=== PATIENT | male | born 1970 | race Two or more races ===

== ENCOUNTER 2016-11-24 12:08 | Inpatient (IN) | payer MEDICAID ==
[~2016-11-24] VITALS: Ht 172.7 cm; Wt 249.5 kg
[~2016-11-24 12:08] MED LIST: ALBU0.084 IN; ASPI81CH43; BUDE160A3 IN; CARV6.25 PO; CLON2TAB3 PO; DABI150C PO; DIGO0.2570 PO; DOXY100C46 PO; FURO40TA PO; OMEP20CA5 OR; POT8T PO; PRA25T PO; RANITAB8 PO; TRAM50TA2 PO; [UNRECOGNIZED DRUG - CODE] IM
[2016-11-24 13:13] LABS: Basophils # (auto) 0.1 uL; Basophils % (auto) 1.3 % (0.0-2.0); DEFINITIVE VIEW TRANSMISSION; Eosinophils # (auto) 0.1 uL; Eosinophils % (auto) 0.7 % (0.0-7.0); Hematocrit 44.5 % (41.0-53.0); Lymphocytes # (auto) 1.5 uL; Lymphocytes % (auto) 14.5 % (10.0-50.0); Mean Corpuscular Hemoglobin 27.6 pg (28.0-32.0); Mean Corpuscular Hgb Conc. 31.4 g/dL (32.0-36.0); Mean Corpuscular Volume 87.8 fL (80.0-100.0); Mean Platelet Volume 10.5 fL (7.4-10.4); Monocytes # (auto) 0.7 uL; Neutrophils # (auto) 7.6 uL; Neutrophils % (auto) 76.5 % (37.0-80.0); Platelet Count (auto) 253 10^3/uL (140-450)
[2016-11-24] MEDS ORDERED: ALPRAZolam 0.5 MG TAB PO ONE (13:15)
[2016-11-24] MEDS ORDERED: ENA10T PO (13:37)
[2016-11-24] MEDS ORDERED: ALPR2TAB2 PO (13:37)
[2016-11-24] MEDS ORDERED: APIX5TAB PO (13:37)
[2016-11-24] MEDS ORDERED: GABA600T PO (13:37)
[2016-11-24] MEDS ORDERED: DULA0.5I SC (13:38)
[2016-11-24] MEDS ORDERED: CHOL100040 PO (13:38)
[2016-11-24] MEDS ORDERED: ERGO1CAP23 PO (13:38)
[2016-11-24 13:39] LABS: Albumin 3.1 g/dL (3.4-5.0); Anion Gap 10 (5-15); Blood Urea Nitrogen 10 mg/dL (7-18); Calcium 8.5 mg/dL (8.5-10.1); Carbon Dioxide 28 mmol/L (21-32); Chloride 101 mmol/L (98-107); Glucose 102 mg/dL (74-106); Magnesium 2.2 mg/dL (1.6-2.6); Potassium 4.3 mmol/L (3.5-5.1); Sodium 139 mmol/L (136-145)
[2016-11-24] MEDS ORDERED: BECL0.07 IN (13:39)
[2016-11-24] MEDS ORDERED: ALBUAER3 IN (13:39)
[2016-11-24] MEDS ORDERED: SERDISK IN (13:40)
[2016-11-24] MEDS ORDERED: PANT40TA2 PO (13:40)
[2016-11-24 13:42] LABS: Aspartate Aminotransferase 15 U/L (15-37); BUN/Creatinine Ratio 9.3; GFR African American 95 mL/min; GFR Non-African American 78 mL/min
[2016-11-24 13:47] LABS: Alkaline Phosphatase 115 U/L (45-117); Bilirubin, Total 0.8 mg/dL (0.2-1.0); Total Protein 7.5 g/dL (6.4-8.2)
[2016-11-24 13:51] LABS: Partial Thromboplastin Time 27.3 sec (22.64-33.71)
[2016-11-24 13:53] LABS: INR 1.21 (0.9-1.15); Prothrombin Time 12.5 sec (9.37-12.3)
[2016-11-24 14:24] LABS: Anisocytosis Slight; Platelet Estimate Adequate; Stomatocytes Few
[2016-11-24 14:25] LABS: Polychromasia Slight
[2016-11-24] MEDS ORDERED: LORazepam 0.5 MG TAB PO PRN (14:30)
[2016-11-24] MEDS ORDERED: ACETAMINOPHEN 500 MG TAB PO PRN (14:30)
[2016-11-24] MEDS ORDERED: NITROGLYCERIN 0.4 MG SL TAB SL PRN (14:30)
[2016-11-24] MEDS ORDERED: PROMETHAZINE HCL 25 MG/ML 1ML IV PRN (14:30)
[2016-11-24] MEDS ORDERED: ALBUTEROL SULF 2.5 MG/0.5ML(0.5%) NEB SOLN NEB PRN (14:30)
[2016-11-24] MEDS ORDERED: DEXTROSE (50%) 50ML SYRG IV PRN (14:30)
[2016-11-24] MEDS ORDERED: MORPHINE SULF INJ 2 MG/ML SYRINGE 1ML IV PRN ×2 (14:30)
[2016-11-24] MEDS ORDERED: LACTULOSE 20Gm/30ML SOLN PO PRN (14:30)
[2016-11-24] MEDS ORDERED: TEMAZEPAM 15 MG CAP PO PRN (14:30)
[2016-11-24] MEDS ORDERED: HYDROcodone-ACET 5/325MG TAB PO PRN (14:30)
[2016-11-24 14:59] LABS: B-Type Natriuretic Peptide 134.93 pg/mL (0-100); Temperature: 23.3 C (20.0-25.0)
[2016-11-24 15:18] VITALS: BP 101/70
[2016-11-24] MEDS ORDERED: PANTOPRAZOLE 40 MG TAB PO ONE (15:45)
[2016-11-24] MEDS ORDERED: CHOLECALCIFEROL (VITD3) 1,000 UNIT TAB PO ONE (15:45)
[2016-11-24] MEDS ORDERED: ENALAPRIL MALEATE 10 MG TAB PO ONE (15:45)
[2016-11-24] MEDS ORDERED: ASPirin 81 mg TAB PO ONE (15:45)
[2016-11-24] MEDS: InsuLIN REG 1unit/0.01ml Soln (100units/ml) SC SCH ×2 (17:00→21:59)
[2016-11-24 17:10] VITALS: BP 164/107
[2016-11-24] MEDS: ACCU-CHEK COMFORT CURVE STRIP VI SCH ×2 (18:20→21:51)
[2016-11-24] MEDS ORDERED: PNEUMOCOCCAL VACC POLYS 25 MCG/0.5 ML VIAL IM ONE (19:00)
[2016-11-24] MEDS ORDERED: LABETALOL HCL 5 MG/ML 4ML SYRINGE IV PRN (19:00)
[2016-11-24] MEDS: IPRATROPIUM BROM 0.5 MG/2.5ML INH SOL NEB SCH (19:08)
[2016-11-24] MEDS: ALBUTEROL SULF 2.5 MG/0.5ML(0.5%) NEB SOLN NEB SCH (19:08)
[2016-11-24] MEDS: BUDESONIDE (INHALATION) 0.5 MG/2 ML NEB NEB SCH (19:09)
[2016-11-24] MEDS: CARVEDILOL 12.5 MG TAB PO SCH (21:48)
[2016-11-24] MEDS: FUROSEMIDE 40 MG/4 ML VIAL IV SCH (21:48)
[2016-11-24] MEDS: APIXABAN 5 MG TAB PO SCH (21:48)
[2016-11-24] MEDS: GABAPENTIN 300 MG CAP PO SCH (21:49)
[2016-11-24] MEDS: PRAMIPEXOLE DIHYDROCHLORIDE MO 0.25 MG TAB PO SCH (21:49)
[2016-11-24] MEDS: POTASSIUM CHL 20 Meq TABLET PO SCH (21:49)
[2016-11-24] MEDS: ALPRAZolam 0.5 MG TAB PO SCH (21:50)
[2016-11-24] MEDS ORDERED: PATIENTS OWN MEDICATION (Carvedilol (Coreg) 25 MG) PO SCH (22:00)
[2016-11-24] MEDS ORDERED: PATIENTS OWN MEDICATION (Beclomethasone Dipropionate (Qvar) 80 MCG) IN SCH ×2 (22:00)
[2016-11-24] MEDS ORDERED: GABAPENTIN 600 MG PO SCH (22:00)
[2016-11-24] MEDS ORDERED: SALMETEROL XINAFOATE 50 MCG IN SCH (22:00)
[2016-11-24] MEDS ORDERED: PATIENTS OWN MEDICATION (Alprazolam (Xanax) 1 TAB) PO SCH ×2 (22:00)
[2016-11-24] MEDS ORDERED: FAMOTIDINE 20 MG TAB PO SCH (22:00)
[2016-11-24 22:05] VITALS: BP 116/71
[2016-11-25] MEDS: IPRATROPIUM BROM 0.5 MG/2.5ML INH SOL NEB SCH ×5 (00:13→23:29)
[2016-11-25] MEDS: ALBUTEROL SULF 2.5 MG/0.5ML(0.5%) NEB SOLN NEB SCH ×5 (00:13→23:29)
[2016-11-25 05:04] VITALS: BP 134/86
[2016-11-25 05:29] LABS: Basophils # (auto) 0 uL; Basophils % (auto) 0.5 % (0.0-2.0); DEFINITIVE VIEW TRANSMISSION; Eosinophils # (auto) 0.1 uL; Eosinophils % (auto) 1.1 % (0.0-7.0); Hematocrit 42.4 % (41.0-53.0); Hemoglobin 13.3 g/dL (13.5-17.5); Lymphocytes # (auto) 1.6 uL; Lymphocytes % (auto) 18.3 % (10.0-50.0); Mean Corpuscular Hgb Conc. 31.3 g/dL (32.0-36.0); Mean Corpuscular Volume 89.4 fL (80.0-100.0); Mean Platelet Volume 10.7 fL (7.4-10.4); Monocytes # (auto) 0.5 uL; Monocytes % (auto) 6.1 % (0.0-12.0); Neutrophils # (auto) 6.5 uL; Platelet Count (auto) 220 10^3/uL (140-450); SUSPECT VIEW TRANSMISSION; White Blood Cell 8.8 10^3/uL (4.4-10.8)
[2016-11-25 05:42] LABS: Red Cell Distribution Width 20.8 % (11.6-16.0)
[2016-11-25] MEDS: BUDESONIDE (INHALATION) 0.5 MG/2 ML NEB NEB SCH ×2 (05:45→23:29)
[2016-11-25 06:10] LABS: Albumin 2.9 g/dL (3.4-5.0); Alkaline Phosphatase 111 U/L (45-117); Anion Gap 12 (5-15); Aspartate Aminotransferase 20 U/L (15-37); BUN/Creatinine Ratio 10.6; Bilirubin, Total 0.8 mg/dL (0.2-1.0); Blood Urea Nitrogen 11 mg/dL (7-18); Calcium 8.5 mg/dL (8.5-10.1); Carbon Dioxide 26 mmol/L (21-32); Chloride 104 mmol/L (98-107); Cholesterol 116 mg/dL (<200); GFR African American 98 mL/min; GFR Non-African American 81 mL/min; Glucose 106 mg/dL (74-106); HDL Cholesterol 28 mg/dL (40-59); LDL Cholesterol 78 mg/dL (<100); Potassium 4.1 mmol/L (3.5-5.1); Sodium 142 mmol/L (136-145); Total Protein 6.7 g/dL (6.4-8.2); Triglycerides 154 mg/dL (<150)
[2016-11-25] MEDS: PRAMIPEXOLE DIHYDROCHLORIDE MO 0.25 MG TAB PO SCH ×3 (06:24→21:51)
[2016-11-25] MEDS: ACCU-CHEK COMFORT CURVE STRIP VI SCH ×4 (06:25→21:52)
[2016-11-25] MEDS: InsuLIN REG 1unit/0.01ml Soln (100units/ml) SC SCH ×4 (06:27→21:52)
[2016-11-25 06:50] LABS: Anisocytosis Slight; Platelet Estimate Adequate; Polychromasia Slight
[2016-11-25 09:00] VITALS: BP 141/81
[2016-11-25] MEDS: FUROSEMIDE 40 MG/4 ML VIAL IV SCH ×2 (09:07→21:52)
[2016-11-25] MEDS: ASPirin 81 mg TAB PO SCH (09:08)
[2016-11-25] MEDS: CARVEDILOL 12.5 MG TAB PO SCH ×2 (09:09→21:50)
[2016-11-25] MEDS: ENALAPRIL MALEATE 10 MG TAB PO SCH (09:11)
[2016-11-25] MEDS: POTASSIUM CHL 20 Meq TABLET PO SCH ×2 (09:12→21:48)
[2016-11-25] MEDS: GABAPENTIN 300 MG CAP PO SCH ×2 (09:12→21:50)
[2016-11-25] MEDS: APIXABAN 5 MG TAB PO SCH ×2 (09:12→21:51)
[2016-11-25] MEDS: CHOLECALCIFEROL (VITD3) 1,000 UNIT TAB PO SCH (09:12)
[2016-11-25] MEDS: ALPRAZolam 0.5 MG TAB PO SCH ×2 (09:13→21:47)
[2016-11-25] MEDS: PANTOPRAZOLE 40 MG TAB PO SCH (09:13)
[2016-11-25 13:00] VITALS: BP 106/67
[2016-11-25 17:00] VITALS: BP 104/60
[2016-11-25 20:00] VITALS: BP 148/86
[2016-11-25 21:20] VITALS: BP 145/88
[2016-11-26 04:31] VITALS: BP 114/69
[2016-11-26] MEDS: IPRATROPIUM BROM 0.5 MG/2.5ML INH SOL NEB SCH (05:58)
[2016-11-26] MEDS: BUDESONIDE (INHALATION) 0.5 MG/2 ML NEB NEB SCH (05:58)
[2016-11-26] MEDS: ALBUTEROL SULF 2.5 MG/0.5ML(0.5%) NEB SOLN NEB SCH (05:58)
[2016-11-26] MEDS: PRAMIPEXOLE DIHYDROCHLORIDE MO 0.25 MG TAB PO SCH (06:13)
[2016-11-26] MEDS: InsuLIN REG 1unit/0.01ml Soln (100units/ml) SC SCH (06:15)
[2016-11-26] MEDS: ACCU-CHEK COMFORT CURVE STRIP VI SCH (06:16)
[2016-11-26 07:46] LABS: BUN/Creatinine Ratio 11.9; Calcium 8.6 mg/dL (8.5-10.1)
[2016-11-26 09:19] VITALS: BP 104/70
[2016-11-26] MEDS: ENALAPRIL MALEATE 10 MG TAB PO SCH (10:00)
[2016-11-26] MEDS: CARVEDILOL 12.5 MG TAB PO SCH (10:00)
[2016-11-26] MEDS: FUROSEMIDE 40 MG/4 ML VIAL IV SCH (10:00)
[2016-11-26] MEDS: GABAPENTIN 300 MG CAP PO SCH (10:35)
[2016-11-26] MEDS: CHOLECALCIFEROL (VITD3) 1,000 UNIT TAB PO SCH (10:35)
[2016-11-26] MEDS: PANTOPRAZOLE 40 MG TAB PO SCH (10:35)
[2016-11-26] MEDS: POTASSIUM CHL 20 Meq TABLET PO SCH (10:35)
[2016-11-26] MEDS: APIXABAN 5 MG TAB PO SCH (10:36)
[2016-11-26] MEDS: ALPRAZolam 0.5 MG TAB PO SCH (10:36)
[2016-11-26] MEDS: ASPirin 81 mg TAB PO SCH (10:36)
== END 2016-11-26 11:07 | disposition home or self-care (01) | DRG 194 ==
LOC: ER 12:08 → EDUNIT# 12:08 → TELE 12:09 → TELE-E-ADS 15:47 → TELE-EAST 19:08
PROVIDERS: ADMIT Internal Medicine; ATTEND Internal Medicine
PROC: 5A09457 Assistance with Respiratory Ventilation, 24-96 Consecutive Hours, Continuous Positive Airway Pressure (ICD-10-PCS; principal; 2016-11-25)
DX: I11.0 Hypertensive heart disease with heart failure (principal); J96.20 Acute and chronic respiratory failure, unspecified whether with hypoxia or hypercapnia; E44.0 Moderate protein-calorie malnutrition; D68.69 Other thrombophilia; Z68.45 Body mass index [BMI] 70 or greater, adult; E66.01 Morbid (severe) obesity due to excess calories; I48.91 Unspecified atrial fibrillation; K27.9 Peptic ulcer, site unspecified, unspecified as acute or chronic, without hemorrhage or perforation; J44.9 Chronic obstructive pulmonary disease, unspecified; I50.43 Acute on chronic combined systolic (congestive) and diastolic (congestive) heart failure; I25.110 Atherosclerotic heart disease of native coronary artery with unstable angina pectoris; G47.30 Sleep apnea, unspecified; K21.9 Gastro-esophageal reflux disease without esophagitis; Z86.14 Personal history of Methicillin resistant Staphylococcus aureus infection; Z87.11 Personal history of peptic ulcer disease; Z83.3 Family history of diabetes mellitus; Z82.49 Family history of ischemic heart disease and other diseases of the circulatory system; Z80.9 Family history of malignant neoplasm, unspecified; E11.9 Type 2 diabetes mellitus without complications; Z79.82 Long term (current) use of aspirin; Z23 Encounter for immunization
CPT/HCPCS: 36415; 71010; 80048; 80053; 80061; 82550; 82962; 83036; 83735; 83880; 84443; 84484; 85025; 85379; 85610; 85652; 85730; 86141; 87081; 93005; 94640; 94660; 94761

== ENCOUNTER 2017-01-05 17:59 | Inpatient (IN) | payer MEDICAID ==
[~2017-01-05] VITALS: Ht 147.3 cm; Wt 262.2 kg
[~2017-01-05 17:59] MED LIST changes: +ALBUAER3 IN; +ALPR2TAB2 PO; +APIX5TAB PO; -ASPI81CH43; +BECL0.07 IN; -BUDE160A3 IN; +CHOL100040 PO; -CLON2TAB3 PO; -DABI150C PO; -DIGO0.2570 PO; -DOXY100C46 PO; +DULA0.5I SC; +ENA10T PO; +ERGO1CAP23 PO; +GABA600T PO; -OMEP20CA5 OR; +PANT40TA2 PO; +SERDISK IN; -TRAM50TA2 PO
[2017-01-05 18:52] LABS: Basophils # (auto) 0 uL; Basophils % (auto) 0.3 % (0.0-2.0); DEFINITIVE VIEW TRANSMISSION; Eosinophils # (auto) 0.1 uL; Eosinophils % (auto) 0.6 % (0.0-7.0); Hematocrit 46.5 % (41.0-53.0); Hemoglobin 14.4 g/dL (13.5-17.5); Lymphocytes # (auto) 1.2 uL; Lymphocytes % (auto) 11.4 % (10.0-50.0); Mean Corpuscular Hemoglobin 27.3 pg (28.0-32.0); Mean Corpuscular Volume 88.2 fL (80.0-100.0); Mean Platelet Volume 10.1 fL (7.4-10.4); Monocytes # (auto) 0.7 uL; Neutrophils # (auto) 8.1 uL; Neutrophils % (auto) 80.7 % (37.0-80.0); Platelet Count (auto) 245 10^3/uL (140-450); Red Cell Distribution Width 19.6 % (11.6-16.0); SUSPECT VIEW TRANSMISSION; White Blood Cell 10.1 10^3/uL (4.4-10.8)
[2017-01-05 19:11] LABS: Albumin 3.6 g/dL (3.4-5.0); Anion Gap 9 (5-15); Aspartate Aminotransferase 14 U/L (15-37); Blood Urea Nitrogen 12 mg/dL (7-18); Calcium 8.5 mg/dL (8.5-10.1); Carbon Dioxide 28 mmol/L (21-32); Chloride 105 mmol/L (98-107); GFR African American 83 mL/min; GFR Non-African American 69 mL/min; Glucose 97 mg/dL (74-106); Magnesium 2.3 mg/dL (1.6-2.6); Potassium 4.4 mmol/L (3.5-5.1); Sodium 142 mmol/L (136-145)
[2017-01-05 19:16] LABS: Alkaline Phosphatase 124 U/L (45-117); Bilirubin, Total 0.9 mg/dL (0.2-1.0); Total Protein 7.7 g/dL (6.4-8.2)
[2017-01-05] MEDS ORDERED: methylPREDNISolone SOD SUCC 125 MG/2 ML VL IV ONE (19:30)
[2017-01-05] MEDS ORDERED: IPRATROPIUM BROM 0.5 MG/2.5ML INH SOL NEB ONE (19:30)
[2017-01-05] MEDS ORDERED: ALBUTEROL SULF 2.5 MG/0.5ML(0.5%) NEB SOLN NEB ONE (19:30)
[2017-01-05 19:39] LABS: Anisocytosis Slight; Ovalocytes FEW; Platelet Estimate Adequate
[2017-01-05 19:40] LABS: Large Platelets FEW
[2017-01-05 20:06] LABS: B-Type Natriuretic Peptide 175.5 pg/mL (0-100)
[2017-01-05 20:07] LABS: Temperature: 23.4 C (20.0-25.0)
[2017-01-05] MEDS ORDERED: DILTIAZEM HCL 25 MG/5 ML VIAL IV ONE ×2 (22:30)
[2017-01-05] MEDS ORDERED: MORPHINE SULF INJ 2 MG/ML SYRINGE 1ML IV PRN ×2 (23:00→23:15)
[2017-01-05] MEDS ORDERED: NITROGLYCERIN 0.4 MG SL TAB SL PRN (23:00)
[2017-01-05] MEDS ORDERED: ALPRAZolam 0.5 MG TAB PO PRN (23:15)
[2017-01-05] MEDS ORDERED: cefTRIAXone 1GM/50ML D5W 50 ML IV ONE (23:15)
[2017-01-05] MEDS ORDERED: ACETAMINOPHEN 500 MG TAB PO PRN (23:15)
[2017-01-05] MEDS ORDERED: CARVEDILOL 12.5 MG TAB PO ONE (23:15)
[2017-01-05] MEDS ORDERED: AZITHROMYCIN 500MG/D5W 250ML 250 ML IV ONE (23:15)
[2017-01-05] MEDS ORDERED: POTASSIUM CHL 20 Meq TABLET PO ONE (23:15)
[2017-01-05] MEDS ORDERED: ONDANSETRON HCL 4 MG/2 ML VIAL IV PRN (23:15)
[2017-01-05] MEDS ORDERED: DEXTROSE (50%) 50ML SYRG IV PRN (23:15)
[2017-01-05] MEDS ORDERED: HYDROcodone-ACET 5/325MG TAB PO PRN (23:15)
[2017-01-05] MEDS ORDERED: FUROSEMIDE 40 MG/4 ML VIAL IV ONE (23:15)
[2017-01-05 23:16] LABS: Urine Bilirubin Negative (Negative); Urine Blood Negative /uL (Negative); Urine Color Yellow (Yellow); Urine Glucose Normal (Normal); Urine Ketone Negative (Negative); Urine Nitrite Negative (Negative); Urine RBC <1 /hpf (0 - 3); Urine Squamous Epithelial Cell FEW /hpf (<5)
[2017-01-06] MEDS: IPRATROPIUM BROM 0.5 MG/2.5ML INH SOL NEB SCH ×4 (05:48→18:39)
[2017-01-06] MEDS: BUDESONIDE (INHALATION) 0.5 MG/2 ML NEB NEB SCH ×2 (05:48→18:38)
[2017-01-06] MEDS: PRAMIPEXOLE DIHYDROCHLORIDE MO 0.25 MG TAB PO SCH ×3 (06:00→21:41)
[2017-01-06] MEDS: ACCU-CHEK COMFORT CURVE STRIP VI SCH ×4 (07:04→21:41)
[2017-01-06] MEDS: InsuLIN REG 1unit/0.01ml Soln (100units/ml) SC SCH ×4 (07:04→21:34)
[2017-01-06] MEDS: FUROSEMIDE 40 MG/4 ML VIAL IV SCH (09:41)
[2017-01-06] MEDS: POTASSIUM CHL 20 Meq TABLET PO SCH (09:42)
[2017-01-06] MEDS: CARVEDILOL 12.5 MG TAB PO SCH ×3 (09:42→21:38)
[2017-01-06] MEDS: APIXABAN 5 MG TAB PO SCH ×2 (09:42→21:40)
[2017-01-06] MEDS: ENALAPRIL MALEATE 10 MG TAB PO SCH (09:43)
[2017-01-06] MEDS: GABAPENTIN 300 MG CAP PO SCH ×2 (09:43→21:41)
[2017-01-06] MEDS: PANTOPRAZOLE 40 MG TAB PO SCH (09:43)
[2017-01-06 10:55] LABS: Basophils # (auto) 0 uL; Basophils % (auto) 0.1 % (0.0-2.0); DEFINITIVE VIEW TRANSMISSION; Eosinophils # (auto) 0 uL; Hematocrit 44.7 % (41.0-53.0); Hemoglobin 14.2 g/dL (13.5-17.5); Lymphocytes # (auto) 0.7 uL; Lymphocytes % (auto) 7.2 % (10.0-50.0); Mean Corpuscular Hemoglobin 27.7 pg (28.0-32.0); Mean Corpuscular Hgb Conc. 31.7 g/dL (32.0-36.0); Mean Corpuscular Volume 87.4 fL (80.0-100.0); Mean Platelet Volume 10.2 fL (7.4-10.4); Monocytes # (auto) 0.3 uL; Monocytes % (auto) 2.7 % (0.0-12.0); Neutrophils # (auto) 8.8 uL; Platelet Count (auto) 244 10^3/uL (140-450); Red Cell Distribution Width 19.8 % (11.6-16.0); SUSPECT VIEW TRANSMISSION; White Blood Cell 9.7 10^3/uL (4.4-10.8)
[2017-01-06 11:07] LABS: Calcium 8.8 mg/dL (8.5-10.1); Magnesium 2.4 mg/dL (1.6-2.6); Potassium 4.2 mmol/L (3.5-5.1)
[2017-01-06 11:08] LABS: BUN/Creatinine Ratio 11.4
[2017-01-06] MEDS ORDERED: AMIODARONE HCL 150 MG in D5W 5% 100 ML IV ONE (11:20)
[2017-01-06] MEDS ORDERED: AMIODARONE HCL 900 MG in DEXTROSE 500 ML IV SCH ×2 (11:30→17:30)
[2017-01-06 11:42] LABS: Partial Thromboplastin Time 30.5 sec (22.64-33.71); Prothrombin Time 12.8 sec (9.37-12.3)
[2017-01-06 11:43] LABS: INR 1.19 (0.9-1.15)
[2017-01-06 11:44] LABS: Anisocytosis Slight; Platelet Estimate Adequate
[2017-01-06] MEDS: DIGOXIN (250MCG/ML) 2 ML AMPULE IV SCH ×2 (15:07→20:32)
[2017-01-06 20:00] VITALS: BP 132/89
[2017-01-06] MEDS ORDERED: AZITHROMYCIN 500MG/D5W 250ML 250 ML IV SCH (22:00)
[2017-01-06] MEDS ORDERED: cefTRIAXone 1GM/50ML D5W 50 ML IV SCH (22:00)
[2017-01-07] VITALS (8 sets, daily range): BP systolic 131–150; BP diastolic 62–98
[2017-01-07] MEDS: DIGOXIN (250MCG/ML) 2 ML AMPULE IV SCH (02:24)
[2017-01-07 04:55] LABS: BUN/Creatinine Ratio 13.5; Calcium 8.9 mg/dL (8.5-10.1); Potassium 4.5 mmol/L (3.5-5.1)
[2017-01-07] MEDS: PRAMIPEXOLE DIHYDROCHLORIDE MO 0.25 MG TAB PO SCH ×2 (05:34→13:39)
[2017-01-07] MEDS: IPRATROPIUM BROM 0.5 MG/2.5ML INH SOL NEB SCH ×4 (05:45→20:25)
[2017-01-07] MEDS: BUDESONIDE (INHALATION) 0.5 MG/2 ML NEB NEB SCH ×2 (05:46→20:25)
[2017-01-07] MEDS: InsuLIN REG 1unit/0.01ml Soln (100units/ml) SC SCH ×3 (06:24→17:00)
[2017-01-07] MEDS: ACCU-CHEK COMFORT CURVE STRIP VI SCH ×3 (06:25→17:00)
[2017-01-07] MEDS ORDERED: DIGOXIN 0.25 MG TAB PO SCH (10:00)
[2017-01-07] MEDS: GABAPENTIN 300 MG CAP PO SCH (10:38)
[2017-01-07] MEDS: POTASSIUM CHL 20 Meq TABLET PO SCH (10:38)
[2017-01-07] MEDS: CARVEDILOL 12.5 MG TAB PO SCH (10:39)
[2017-01-07] MEDS: PANTOPRAZOLE 40 MG TAB PO SCH (10:40)
[2017-01-07] MEDS: ENALAPRIL MALEATE 10 MG TAB PO SCH (10:40)
[2017-01-07] MEDS: APIXABAN 5 MG TAB PO SCH (10:40)
[2017-01-07] MEDS: FUROSEMIDE 40 MG/4 ML VIAL IV SCH (10:40)
[2017-01-07] MEDS ORDERED: DIGO0.2566 PO (13:19)
== END 2017-01-07 21:19 | disposition left against medical advice (07) | DRG 194 ==
LOC: EDBD 17:59 → ER 18:04 → TELE 18:05 → TELE-EAST 18:06 → TELE 01-06 17:56 → DOU IN ICU 01-06 18:01
PROVIDERS: ADMIT Internal Medicine; ATTEND Internal Medicine
PROC: 5A09357 Assistance with Respiratory Ventilation, Less than 24 Consecutive Hours, Continuous Positive Airway Pressure (ICD-10-PCS; principal; 2017-01-07)
DX: I11.0 Hypertensive heart disease with heart failure (principal); Z99.81 Dependence on supplemental oxygen; J44.1 Chronic obstructive pulmonary disease with (acute) exacerbation; J45.901 Unspecified asthma with (acute) exacerbation; Z68.45 Body mass index [BMI] 70 or greater, adult; E66.01 Morbid (severe) obesity due to excess calories; I50.33 Acute on chronic diastolic (congestive) heart failure; I48.2 Chronic atrial fibrillation; K21.9 Gastro-esophageal reflux disease without esophagitis; F41.0 Panic disorder [episodic paroxysmal anxiety]; G47.30 Sleep apnea, unspecified; I25.10 Atherosclerotic heart disease of native coronary artery without angina pectoris; E11.9 Type 2 diabetes mellitus without complications; I45.10 Unspecified right bundle-branch block; Z82.49 Family history of ischemic heart disease and other diseases of the circulatory system; Z83.3 Family history of diabetes mellitus; Z86.14 Personal history of Methicillin resistant Staphylococcus aureus infection; Z87.11 Personal history of peptic ulcer disease; Z80.9 Family history of malignant neoplasm, unspecified
CPT/HCPCS: 36415; 36600; 71010; 80048; 80053; 81001; 82805; 82962; 83605; 83735; 83880; 84484; 85025; 85610; 85730; 87040; 87081; 93005; 94640; 94644; 94660; 94761; 96374; 96375; 96376; J0696; J1815; J7060

== ENCOUNTER 2017-01-13 21:35 | Inpatient (IN) | payer MEDICAID ==
[~2017-01-13] VITALS: Ht 182.9 cm; Wt 259.0 kg
[~2017-01-13 21:35] MED LIST changes: +DIGO0.2566 PO
[2017-01-13] MEDS ORDERED: methylPREDNISolone SOD SUCC 125 MG/2 ML VL IV ONE (22:00)
[2017-01-13 22:41] LABS: Basophils # (auto) 0 uL; DEFINITIVE VIEW TRANSMISSION; Eosinophils # (auto) 0.1 uL; Eosinophils % (auto) 1.2 % (0.0-7.0); Hematocrit 47.4 % (41.0-53.0); Monocytes # (auto) 0.6 uL; Neutrophils # (auto) 8.5 uL; SUSPECT VIEW TRANSMISSION
[2017-01-13 22:49] LABS: Basophils % (auto) 0.4 % (0.0-2.0); Hemoglobin 14.7 g/dL (13.5-17.5); Lymphocytes # (auto) 1.5 uL; Lymphocytes % (auto) 14.1 % (10.0-50.0); Mean Corpuscular Hemoglobin 27.5 pg (28.0-32.0); Mean Corpuscular Volume 88.6 fL (80.0-100.0); Mean Platelet Volume 10.2 fL (7.4-10.4); Monocytes % (auto) 5.7 % (0.0-12.0); Neutrophils % (auto) 78.6 % (37.0-80.0); Platelet Count (auto) 259 10^3/uL (140-450); Red Cell Distribution Width 19.4 % (11.6-16.0); White Blood Cell 10.8 10^3/uL (4.4-10.8)
[2017-01-13 23:11] LABS: Albumin 3.2 g/dL (3.4-5.0); Alkaline Phosphatase 125 U/L (45-117); Anion Gap 8 (5-15); Aspartate Aminotransferase 17 U/L (15-37); BUN/Creatinine Ratio 13.4; Bilirubin, Total 0.8 mg/dL (0.2-1.0); Blood Urea Nitrogen 15 mg/dL (7-18); Calcium 8.9 mg/dL (8.5-10.1); Carbon Dioxide 31 mmol/L (21-32); Chloride 99 mmol/L (98-107); GFR African American 90 mL/min; GFR Non-African American 74 mL/min; Glucose 131 mg/dL (74-106); Magnesium 2.4 mg/dL (1.6-2.6); Potassium 4.1 mmol/L (3.5-5.1); Sodium 138 mmol/L (136-145); Total Protein 7.3 g/dL (6.4-8.2)
[2017-01-13 23:12] LABS: B-Type Natriuretic Peptide 110.6 pg/mL (0-100); Temperature: 22.9 C (20.0-25.0)
[2017-01-13 23:21] LABS: Anisocytosis Moderate; Ovalocytes FEW; Platelet Estimate Adequate; Polychromasia Slight
[2017-01-13 23:22] LABS: Large Platelets FEW
[2017-01-13 23:29] LABS: Urine RBC None Seen /hpf (0 - 3)
[2017-01-13 23:48] LABS: Urine Bilirubin Negative (Negative); Urine Blood Negative /uL (Negative); Urine Color Yellow (Yellow); Urine Glucose Normal (Normal); Urine Ketone Negative (Negative); Urine Nitrite Negative (Negative); Urine Urobilinogen Normal (Negative); Urine pH 6.5 (5.0-8.0)
[2017-01-14] MEDS ORDERED: ENALAPRILAT 1.25 MG/ML-1ML VIAL IV ONE (01:15)
[2017-01-14] MEDS ORDERED: DILTIAZEM HCL 25 MG/5 ML VIAL IV ONE (01:15)
[2017-01-14 01:50] LABS: INR 1.06 (0.9-1.15); Partial Thromboplastin Time 30.3 sec (22.64-33.71); Prothrombin Time 11.4 sec (9.37-12.3)
[2017-01-14] MEDS ORDERED: SODIUM CHLORIDE 0.9% 1,000 ML IV SCH (05:56)
[2017-01-14] MEDS ORDERED: NITROGLYCERIN 0.4 MG SL TAB SL PRN (06:00)
[2017-01-14] MEDS ORDERED: TEMAZEPAM 15 MG CAP PO PRN (06:00)
[2017-01-14] MEDS ORDERED: ONDANSETRON HCL 4 MG/2 ML VIAL IV PRN (06:00)
[2017-01-14] MEDS ORDERED: IPRATROPIUM BROM 0.5 MG/2.5ML INH SOL NEB ONE (06:00)
[2017-01-14] MEDS ORDERED: ACETAMINOPHEN 325 MG TAB PO PRN (06:00)
[2017-01-14] MEDS ORDERED: DEXTROSE (50%) 50ML SYRG IV PRN (06:00)
[2017-01-14] MEDS ORDERED: ALBUTEROL SULF 2.5 MG/0.5ML(0.5%) NEB SOLN NEB ONE (06:00)
[2017-01-14] MEDS ORDERED: MORPHINE SULF INJ 2 MG/ML SYRINGE 1ML IV PRN ×2 (06:00)
[2017-01-14] MEDS: ACCU-CHEK COMFORT CURVE STRIP VI SCH ×2 (07:28→11:33)
[2017-01-14] MEDS: InsuLIN REG 1unit/0.01ml Soln (100units/ml) SC SCH ×2 (07:33→11:54)
[2017-01-14] MEDS ORDERED: ENOXAPARIN SOD 40 MG/0.4 ML SYRINGE SC SCH (10:00)
[2017-01-14] MEDS ORDERED: FUROSEMIDE 40 MG TAB PO ONE (10:00)
[2017-01-14] MEDS ORDERED: ZINC SULFATE 220 MG CAP PO SCH (10:00)
[2017-01-14] MEDS ORDERED: MULTIPLE VITAMIN TAB PO SCH (10:00)
[2017-01-14] MEDS ORDERED: METOPROLOL TARTRATE 25 MG TAB PO ONE (10:00)
[2017-01-14] MEDS ORDERED: ENOXAPARIN SOD 30 MG/0.3 ML SYRINGE SC SCH (10:00)
[2017-01-14] MEDS ORDERED: ASCORBIC ACID 500 MG TAB PO SCH (10:00)
[2017-01-14] MEDS ORDERED: FAMOTIDINE 20 MG TAB PO SCH (10:00)
[2017-01-14 14:11] VITALS: BP 125/82
== END 2017-01-14 13:50 | disposition left against medical advice (07) | DRG 194 ==
LOC: ER 21:54 → TELE 21:55 → TELE-WESTW 01-14 13:22
PROVIDERS: ADMIT Emergency Medicine; ATTEND Internal Medicine
DX: I11.0 Hypertensive heart disease with heart failure (principal); Z68.45 Body mass index [BMI] 70 or greater, adult; E66.01 Morbid (severe) obesity due to excess calories; E11.9 Type 2 diabetes mellitus without complications; I25.10 Atherosclerotic heart disease of native coronary artery without angina pectoris; I48.91 Unspecified atrial fibrillation; I50.9 Heart failure, unspecified; J44.9 Chronic obstructive pulmonary disease, unspecified; J98.11 Atelectasis; K21.9 Gastro-esophageal reflux disease without esophagitis; Z82.49 Family history of ischemic heart disease and other diseases of the circulatory system; Z83.3 Family history of diabetes mellitus; Z87.11 Personal history of peptic ulcer disease; Z80.9 Family history of malignant neoplasm, unspecified
CPT/HCPCS: 36415; 36600; 71010; 80053; 80162; 81001; 82805; 82962; 83036; 83605; 83735; 83880; 84484; 85025; 85610; 85730; 87040; 93005; 94640; 96372; 96374; 96375; 99291; J1815

== ENCOUNTER 2017-03-20 21:28 | Inpatient (IN) | payer MEDICAID ==
[~2017-03-20] VITALS: Ht 172.7 cm; Wt 235.9 kg
[2017-03-20 22:43] LABS: Basophils # (auto) 0 uL; Basophils % (auto) 0.1 % (0.0-2.0); CONDITION Y; Eosinophils # (auto) 0.2 uL; Eosinophils % (auto) 1.4 % (0.0-7.0); Hematocrit 50.8 % (41.0-53.0); Lymphocytes # (auto) 1.5 uL; Lymphocytes % (auto) 13.2 % (10.0-50.0); Mean Corpuscular Hemoglobin 27.9 pg (28.0-32.0); Mean Corpuscular Hgb Conc. 31.6 g/dL (32.0-36.0); Mean Corpuscular Volume 88.4 fL (80.0-100.0); Mean Platelet Volume 9.4 fL (7.4-10.4); Monocytes # (auto) 0.2 uL; Monocytes % (auto) 1.9 % (0.0-12.0); Neutrophils # (auto) 9.4 uL; Neutrophils % (auto) 83.4 % (37.0-80.0); Platelet Count (auto) 257 10^3/uL (140-450); Red Cell Distribution Width 18.8 % (11.6-16.0); White Blood Cell 11.3 10^3/uL (4.4-10.8)
[2017-03-20 23:01] LABS: INR 1.05 (0.9-1.15); Partial Thromboplastin Time 32.9 sec (22.64-33.71); Prothrombin Time 11.4 sec (9.37-12.3)
[2017-03-20 23:03] LABS: Albumin 3.1 g/dL (3.4-5.0); Anion Gap 8 (5-15); Blood Urea Nitrogen 12 mg/dL (7-18); Calcium 8.5 mg/dL (8.5-10.1); Carbon Dioxide 28 mmol/L (21-32); Chloride 101 mmol/L (98-107); Glucose 107 mg/dL (74-106); Potassium 4.1 mmol/L (3.5-5.1); Sodium 137 mmol/L (136-145)
[2017-03-20 23:04] LABS: Aspartate Aminotransferase 21 U/L (15-37); BUN/Creatinine Ratio 12.6; GFR African American 109 mL/min; GFR Non-African American 90 mL/min
[2017-03-20 23:09] LABS: Alkaline Phosphatase 187 U/L (45-117); Bilirubin, Total 0.5 mg/dL (0.2-1.0); Total Protein 7.7 g/dL (6.4-8.2)
[2017-03-20 23:15] LABS: B-Type Natriuretic Peptide 52.9 pg/mL (0-100)
[2017-03-21] MEDS ORDERED: METOPROLOL TARTRATE 50 MG TAB PO ONE (02:45)
[2017-03-21] MEDS ORDERED: DIGOXIN (250MCG/ML) 2 ML AMPULE IV ONE (02:45)
[2017-03-21] MEDS ORDERED: MORPHINE SULF INJ 2 MG/ML SYRINGE 1ML IV PRN ×2 (06:30→06:45)
[2017-03-21] MEDS ORDERED: TEMAZEPAM 15 MG CAP PO PRN (06:30)
[2017-03-21] MEDS ORDERED: ONDANSETRON HCL 4 MG/2 ML VIAL IV PRN (06:30)
[2017-03-21] MEDS ORDERED: ACETAMINOPHEN 500 MG TAB PO PRN (06:30)
[2017-03-21] MEDS ORDERED: LORazepam 0.5 MG TAB PO PRN (06:30)
[2017-03-21] MEDS ORDERED: HYDROcodone-ACET 5/325MG TAB PO PRN (06:30)
[2017-03-21] MEDS ORDERED: NITROGLYCERIN 0.4 MG SL TAB SL PRN (06:45)
[2017-03-21 06:47] LABS: Urine RBC None Seen /hpf (0 - 3)
[2017-03-21 06:59] LABS: Urine Bilirubin Negative (Negative); Urine Blood Negative /uL (Negative); Urine Color Yellow (Yellow); Urine Glucose Normal (Normal); Urine Ketone Negative (Negative); Urine Nitrite Negative (Negative); Urine Squamous Epithelial Cell FEW /hpf (<5); Urine Urobilinogen Normal (Negative)
[2017-03-21] MEDS ORDERED: FUROSEMIDE 40 MG TAB PO SCH (08:00)
[2017-03-21 08:43] LABS: Basophils # (auto) 0 uL; Basophils % (auto) 0.3 % (0.0-2.0); CONDITION Y; Eosinophils # (auto) 0.2 uL; Eosinophils % (auto) 1.6 % (0.0-7.0); Hematocrit 46.8 % (41.0-53.0); Hemoglobin 15.3 g/dL (13.5-17.5); Lymphocytes # (auto) 1.5 uL; Lymphocytes % (auto) 14.4 % (10.0-50.0); Mean Corpuscular Hemoglobin 28.3 pg (28.0-32.0); Mean Corpuscular Hgb Conc. 32.8 g/dL (32.0-36.0); Mean Corpuscular Volume 86.3 fL (80.0-100.0); Monocytes # (auto) 0.4 uL; Neutrophils # (auto) 8.3 uL; Neutrophils % (auto) 79.7 % (37.0-80.0); Platelet Count (auto) 253 10^3/uL (140-450); Red Cell Distribution Width 18.8 % (11.6-16.0); White Blood Cell 10.4 10^3/uL (4.4-10.8)
[2017-03-21 08:59] LABS: INR 1.06 (0.9-1.15); Partial Thromboplastin Time 33.4 sec (22.64-33.71); Prothrombin Time 11.6 sec (9.37-12.3)
[2017-03-21 09:06] LABS: BUN/Creatinine Ratio 15.8; Bilirubin, Total 0.5 mg/dL (0.2-1.0); Calcium 8.7 mg/dL (8.5-10.1); Potassium 4.1 mmol/L (3.5-5.1); Total Protein 7.2 g/dL (6.4-8.2)
[2017-03-21 09:36] LABS: B-Type Natriuretic Peptide 46.59 pg/mL (0-100)
[2017-03-21] MEDS ORDERED: DEXTROSE (50%) 50ML SYRG IV PRN (09:45)
[2017-03-21 09:54] LABS: Temperature: 24.1 C (20.0-25.0)
[2017-03-21] MEDS ORDERED: POTASSIUM CHLORIDE 8 MEQ TAB PO SCH (10:00)
[2017-03-21] MEDS ORDERED: ENALAPRIL MALEATE 10 MG TAB PO SCH (10:00)
[2017-03-21] MEDS ORDERED: APIXABAN 5 MG TAB PO SCH (10:00)
[2017-03-21] MEDS ORDERED: PATIENTS OWN MEDICATION (Carvedilol (Coreg) 25 MG) PO SCH (10:00)
[2017-03-21] MEDS ORDERED: CARVEDILOL 12.5 MG TAB PO SCH (10:00)
[2017-03-21] MEDS ORDERED: DIGOXIN 0.25 MG TAB PO SCH (10:00)
[2017-03-21] MEDS ORDERED: PANTOPRAZOLE 40 MG TAB PO SCH (10:00)
[2017-03-21 10:42] VITALS: BP 115/62
[2017-03-21] MEDS ORDERED: ACCU-CHEK COMFORT CURVE STRIP VI SCH (11:30)
[2017-03-21] MEDS ORDERED: InsuLIN REG 1unit/0.01ml Soln (100units/ml) SC SCH (11:30)
[2017-03-21] MEDS ORDERED: PRAMIPEXOLE DIHYDROCHLORIDE MO 0.25 MG TAB PO SCH (14:00)
== END 2017-03-21 12:40 | disposition home or self-care (01) | DRG 861 ==
LOC: EDBD 21:28 → ER 21:30 → TELE 21:31
PROVIDERS: ADMIT Nurse Practitioner Family; ATTEND Internal Medicine
DX: R53.1 Weakness (principal); I11.0 Hypertensive heart disease with heart failure; I50.9 Heart failure, unspecified; J44.9 Chronic obstructive pulmonary disease, unspecified; F41.9 Anxiety disorder, unspecified; K21.9 Gastro-esophageal reflux disease without esophagitis; I48.2 Chronic atrial fibrillation; E11.9 Type 2 diabetes mellitus without complications; E66.01 Morbid (severe) obesity due to excess calories; G47.30 Sleep apnea, unspecified; K27.9 Peptic ulcer, site unspecified, unspecified as acute or chronic, without hemorrhage or perforation; I25.10 Atherosclerotic heart disease of native coronary artery without angina pectoris; Z79.01 Long term (current) use of anticoagulants; Z79.4 Long term (current) use of insulin; Z79.899 Other long term (current) drug therapy; Z68.45 Body mass index [BMI] 70 or greater, adult
CPT/HCPCS: 36415; 71010; 80053; 80162; 81001; 82962; 83036; 83880; 84443; 84484; 85025; 85379; 85610; 85730; 87086; 93005; 96374

== ENCOUNTER 2017-06-14 17:06 | Emergency (ER) | payer MEDICAID ==
[~2017-06-14] VITALS: Ht 172.7 cm; Wt 248.2 kg
[2017-06-14 20:27] LABS: Urine Bilirubin Negative (Negative); Urine Blood Negative /uL (Negative); Urine Color Colorless (Yellow); Urine Glucose Normal (Normal); Urine Ketone Negative (Negative); Urine Nitrite Negative (Negative); Urine RBC None Seen /hpf (0 - 3); Urine Urobilinogen Normal (Negative); Urine pH 6.5 (5.0-8.0)
[2017-06-14 21:01] VITALS: BP 143/40
[2017-06-14] MEDS ORDERED: HYDROcodone-ACET 10/325MG TAB PO ONE (21:15)
[2017-06-14] MEDS ORDERED: DILTIAZEM HCL 25 MG/5 ML VIAL IV ONE (21:15)
[2017-06-14 21:43] LABS: Basophils # (auto) 0.1 uL; Basophils % (auto) 0.6 % (0.0-2.0); Eosinophils # (auto) 0.1 uL; Eosinophils % (auto) 1.7 % (0.0-7.0); Hematocrit 49.7 % (41.0-53.0); Hemoglobin 15.9 g/dL (13.5-17.5); Lymphocytes # (auto) 1.2 uL; Lymphocytes % (auto) 13.3 % (10.0-50.0); Mean Corpuscular Hemoglobin 28.2 pg (28.0-32.0); Mean Corpuscular Hgb Conc. 31.9 g/dL (32.0-36.0); Mean Corpuscular Volume 88.4 fL (80.0-100.0); Mean Platelet Volume 9.1 fL (6.9-10.8); Monocytes # (auto) 0.6 uL; Monocytes % (auto) 6.4 % (0.0-12.0); Neutrophils # (auto) 6.8 uL; Nucleated Red Blood Cells % 0.1 %; Platelet Count (auto) 269 10^3/uL (140-450); Red Cell Distribution Width 17.9 % (11.8-14.3); White Blood Cell 8.7 10^3/uL (4.4-10.8)
[2017-06-14 22:00] LABS: Albumin 3.5 g/dL (3.4-5.0); Alkaline Phosphatase 275 U/L (45-117); Anion Gap 9 (5-15); Aspartate Aminotransferase 33 U/L (15-37); BUN/Creatinine Ratio 12.4; Bilirubin, Total 0.4 mg/dL (0.2-1.0); Blood Urea Nitrogen 12 mg/dL (7-18); Calcium 8.9 mg/dL (8.5-10.1); Carbon Dioxide 30 mmol/L (21-32); Chloride 98 mmol/L (98-107); GFR African American 106 mL/min; GFR Non-African American 88 mL/min; Glucose 101 mg/dL (74-106); Magnesium 2.4 mg/dL (1.6-2.6); Sodium 137 mmol/L (136-145); Total Protein 8.4 g/dL (6.4-8.2)
[2017-06-14 22:17] LABS: B-Type Natriuretic Peptide 41.03 pg/mL (0-100)
[2017-06-14 22:29] LABS: Temperature: 21.9 C (20.0-25.0)
== END 2017-06-14 23:09 | disposition left against medical advice (07) ==
LOC: ER 17:19
DX: I48.91 Unspecified atrial fibrillation (principal); E66.01 Morbid (severe) obesity due to excess calories; Z68.45 Body mass index [BMI] 70 or greater, adult; J44.9 Chronic obstructive pulmonary disease, unspecified; I11.0 Hypertensive heart disease with heart failure; I50.9 Heart failure, unspecified; I25.2 Old myocardial infarction; Z86.73 Personal history of transient ischemic attack (TIA), and cerebral infarction without residual deficits; Z79.899 Other long term (current) drug therapy; Z53.29 Procedure and treatment not carried out because of patient's decision for other reasons
CPT/HCPCS: 36415; 71010; 80053; 81001; 83735; 83880; 84484; 85025; 93005; 94761; 96374